=== PATIENT | female | born 1975 | race Caucasian/White ===

== ENCOUNTER 2016-12-28 13:24 | Emergency (ER) | payer OTHER, BC ==
[~2016-12-28] VITALS: Ht 165.1 cm; Wt 54.7 kg
[2016-12-28] MEDS ORDERED: OMEPRAZOLE10 M1 PO (13:50)
[2016-12-28 14:30] VITALS: BP 149/137
== END 2016-12-28 14:31 | disposition home or self-care (01) ==
LOC: EME 13:24
DX: S16.1XXA Strain of muscle, fascia and tendon at neck level, initial encounter (principal); V49.40XA Driver injured in collision with unspecified motor vehicles in traffic accident, initial encounter
CPT/HCPCS: 72040; 99281; 99284